=== PATIENT | male | born 1990 | race Caucasian/White ===

== ENCOUNTER 2025-05-06 18:49 | Inpatient (IN) | payer SELFPAY ==
[~2025-05-06] VITALS: Ht 170.2 cm; Wt 138.8 kg
[2025-05-06 19:00] VITALS: O2SAT 99
[2025-05-06 19:51] LABS: HEMATOCRIT. 46.9 % (42.0-52.0); HEMOGLOBIN. 15.7 g/dL (14.0-18.0); MEAN PLATELET VOLUME 9.4 fl (7.4-10.4); PLATELET 381 x1000/uL (130-400); RED BLOOD CELL COUNT 5.12 mill/uL (4.7-6.1); RED CELL DISTRIBUTION WIDTH 17.8 % (11.6-14.6)
[2025-05-06] MEDS ORDERED: ACETAMINOPHEN 500MG TABLET PO ONE (20:00)
[2025-05-06 20:05] LABS: CREATININE 0.7 mg/dL (0.6-1.3); UREA NITROGEN BLOOD 6 mg/dL (9-23)
[2025-05-06 20:07] LABS: ASPARTATE AMINOTRANSFERASE 90 IU/L (<34); BILIRUBIN DIRECT 12.0 mg/dL (<=3.0); BILIRUBIN TOTAL 17.2 mg/dL (0.1-1.0)
[2025-05-06 20:08] LABS: PROTEIN TOTAL 7.5 g/dL (6.0-8.3)
[2025-05-06 20:12] LABS: LYMPHOCYTES % MANUAL 29.0 % (20.0-50.0); MONOCYTES % MANUAL 10.0 % (2.0-8.0); NEUTROPHILS % MANUAL 61.0 % (45.0-75.0); PLATELET ESTIMATE NORMAL
[2025-05-06] MEDS ORDERED: CEFTRIAXONE 1GM/50ML 50 ML IV ONE (20:45)
[2025-05-06] MEDS: SODIUM CHLORIDE 0.9% (SEPSIS BOLUS) IV ONE (21:08)
[2025-05-06] MEDS: SODIUM CHLORIDE 0.9% 1,000 ML IV ONE (21:08)
[2025-05-06 21:29] LABS: INR 1.2
[2025-05-06] MEDS: ONDANSETRON 4MG ODT PO ONE (21:29)
[2025-05-06] MEDS: KETOROLAC 15MG/ML VIAL IM ONE (21:29)
[2025-05-06] MEDS: CEFTRIAXONE 1GM/50ML 50 ML IV NR (22:20)
[2025-05-06] MEDS: MORPHINE SULFATE 4 MG/ML INJ (FOR IV/IM USE) IV ONE (23:07)
[2025-05-06] MEDS: METRONIDAZOLE 500 MG PREMIX 100 ML IV ONE (23:17)
[2025-05-06] MEDS ORDERED: IPRATROPIUM/ALBUTEROL 0.5-3(2.5)MG/3ML NEB HHN PRN (23:30)
[2025-05-06] MEDS ORDERED: NALOXONE HCL 0.4MG/ML VIAL IV PRN (23:45)
[2025-05-07] VITALS (7 sets, daily range): BP systolic 113–130; BP diastolic 61–83; PULSE 75–89; RESP 18–20; TEMP 36.4–36.6; O2SAT 95–99
[2025-05-07 00:03] LABS: CLARITY URINE CLEAR (CLEAR); COLOR URINE DARK YELLOW (YELLOW); PH URINE 7.0 (4.5-8.0); PROTEIN URINE NEGATIVE (NEGATIVE); SPECIFIC GRAVITY URINE 1.016 (1.005-1.030)
[2025-05-07 00:04] LABS: GLUCOSE URINE 2+ (NEGATIVE); KETONES URINE NEGATIVE (NEGATIVE); LEUKOCYTE ESTERASE URINE 1+ (NEGATIVE); NITRITE URINE NEGATIVE (NEGATIVE); OCCULT BLOOD URINE NEGATIVE (NEGATIVE); UROBILINOGEN URINE 1.0 E.U./dL (0.2-1.0)
[2025-05-07 00:09] LABS: SQUAMOUS EPITHELIAL CELL URINE 2+ /lpf (RARE/1+); WBC URINE 0-2 /hpf (0-2)
[2025-05-07 00:10] LABS: BACTERIA URINE TRACE; RBC URINE NONE SEEN /hpf (0-2)
[2025-05-07] MEDS: KETOROLAC 30MG/ML VIAL IV PRN (01:16)
[2025-05-07] MEDS: MORPHINE SULFATE 4 MG/ML INJ (FOR IV/IM USE) IV PRN (02:09)
[2025-05-07] MEDS: PANTOPRAZOLE SODIUM 40 MG/VIAL IV SCH (02:09)
[2025-05-07] MEDS: PIPERACILLIN/TAZO 3.375G/50ML 50 ML IV SCH (02:10)
[2025-05-07] MEDS: DEXT 5%/0.9% NACL 1,000 ML IV SCH (02:10)
[2025-05-07 11:46] LABS: *AMPHETAMINES SCREEN URINE NEGATIVE (NEGATIVE); *BARBITURATES SCREEN URINE NEGATIVE (NEGATIVE); *BENZODIAZEPINES SCREEN URINE NEGATIVE (NEGATIVE); *COCAINE SCREEN URINE NEGATIVE (NEGATIVE)
[2025-05-07 11:47] LABS: CANNABINOID URINE SCREEN PRESUMPTIVE POSITIVE (NEGATIVE); ECSTASY MDMA SCREEN URINE NEGATIVE (NEGATIVE); METHADONE URINE SCREEN NEGATIVE (NEGATIVE); OPIATES URINE SCREEN NEGATIVE (NEGATIVE); PHENCYCLIDINE URINE SCREEN NEGATIVE (NEGATIVE)
[2025-05-08] VITALS: BP 121/71; PULSE 87; RESP 19; TEMP 36.4; O2SAT 98
[2025-05-08 04:00] VITALS: BP 116/70; PULSE 81; RESP 19; TEMP 36.6; O2SAT 99
[2025-05-08] MEDS: ONDANSETRON HCL 4MG/2ML INJ IV PRN (05:54)
[2025-05-08 06:43] LABS: BASOPHILS % 0.5 % (0.0-2.0); EOSINOPHILS % 1.2 % (0.0-5.0); HEMATOCRIT. 43.7 % (42.0-52.0); HEMOGLOBIN. 15.1 g/dL (14.0-18.0); LYMPHOCYTES % 26.7 % (20.0-50.0); MONOCYTES % 10.8 % (2.0-8.0); NEUTROPHILS % 60.8 % (40.0-76.0); RED BLOOD CELL COUNT 4.81 mill/uL (4.7-6.1); RED CELL DISTRIBUTION WIDTH 18.0 % (11.6-14.6)
[2025-05-08 06:58] LABS: UREA NITROGEN BLOOD < 5 mg/dL (9-23)
[2025-05-08 07:01] LABS: CREATININE 0.5 mg/dL (0.6-1.3)
[2025-05-08 07:02] LABS: ASPARTATE AMINOTRANSFERASE 88 IU/L (<34); MEAN PLATELET VOLUME 9.8 fl (7.4-10.4); PLATELET 375 x1000/uL (130-400)
[2025-05-08 07:03] LABS: BILIRUBIN DIRECT 12.1 mg/dL (<=3.0); BILIRUBIN TOTAL 17.5 mg/dL (0.1-1.0); PHOSPHORUS 3.2 mg/dL (2.5-4.9); PROTEIN TOTAL 6.7 g/dL (6.0-8.3)
[2025-05-08 08:00] VITALS: BP 116/76; PULSE 78; RESP 17; TEMP 37; O2SAT 96
[2025-05-08 16:30] VITALS: BP 119/75; PULSE 77; RESP 18; TEMP 36.2; O2SAT 97
[2025-05-08 20:00] VITALS: BP 120/72; PULSE 71; RESP 20; TEMP 36.5; O2SAT 96
[2025-05-09] VITALS: BP 121/76; PULSE 84; RESP 20; TEMP 36.4; O2SAT 99
[2025-05-09 04:00] VITALS: BP 114/65; PULSE 74; RESP 20; TEMP 36.4; O2SAT 99
[2025-05-09 07:25] LABS: HEMATOCRIT. 42.1 % (42.0-52.0); HEMOGLOBIN. 14.2 g/dL (14.0-18.0); MEAN PLATELET VOLUME 9.8 fl (7.4-10.4); PLATELET 381 x1000/uL (130-400); RED BLOOD CELL COUNT 4.67 mill/uL (4.7-6.1); RED CELL DISTRIBUTION WIDTH 18.0 % (11.6-14.6)
[2025-05-09 07:43] LABS: CREATININE 0.6 mg/dL (0.6-1.3); UREA NITROGEN BLOOD 5 mg/dL (9-23)
[2025-05-09 07:45] LABS: ASPARTATE AMINOTRANSFERASE 87 IU/L (<34); BILIRUBIN DIRECT 12.3 mg/dL (<=3.0); BILIRUBIN TOTAL 17.1 mg/dL (0.1-1.0); PHOSPHORUS 3.7 mg/dL (2.5-4.9); PROTEIN TOTAL 6.3 g/dL (6.0-8.3)
[2025-05-09 08:00] VITALS: BP 114/62; PULSE 77; RESP 19; TEMP 36.7; O2SAT 97
[2025-05-09 12:30] VITALS: BP 115/60; PULSE 79; RESP 19; TEMP 36.8; O2SAT 96
[2025-05-09 12:43] LABS: BAND% 9.0 % (1.0-6.0); EOSINOPHILS % MANUAL 1.0 % (0.0-5.0); LYMPHOCYTES % MANUAL 23.0 % (20.0-50.0); MONOCYTES % MANUAL 5.0 % (2.0-8.0); NEUTROPHILS % MANUAL 62.0 % (45.0-75.0); PLATELET ESTIMATE NORMAL
[2025-05-09 16:30] VITALS: BP 140/82; PULSE 79; RESP 19; TEMP 36.8; O2SAT 97
[2025-05-09 20:00] VITALS: BP 117/72; PULSE 69; RESP 18; TEMP 36.6; O2SAT 97
[2025-05-10] VITALS: BP 118/63; PULSE 71; RESP 18; TEMP 36.7; O2SAT 96
[2025-05-10 04:00] VITALS: BP 113/65; PULSE 70; RESP 18; TEMP 36.4; O2SAT 98
[2025-05-10 08:00] VITALS: BP 111/60; PULSE 70; RESP 16; TEMP 36.6; O2SAT 100
[2025-05-10] MEDS: FAMOTIDINE 20MG/2ML VIAL IV SCH (08:39)
[2025-05-10 08:45] LABS: BASOPHILS % 0.7 % (0.0-2.0); EOSINOPHILS % 1.1 % (0.0-5.0); HEMATOCRIT. 42.6 % (42.0-52.0); HEMOGLOBIN. 14.8 g/dL (14.0-18.0); LYMPHOCYTES % 23.6 % (20.0-50.0); MEAN PLATELET VOLUME 9.6 fl (7.4-10.4); MONOCYTES % 12.3 % (2.0-8.0); NEUTROPHILS % 62.3 % (40.0-76.0); PLATELET 399 x1000/uL (130-400); RED BLOOD CELL COUNT 4.67 mill/uL (4.7-6.1); RED CELL DISTRIBUTION WIDTH 18.1 % (11.6-14.6)
[2025-05-10 08:51] LABS: PROTEIN TOTAL 6.4 g/dL (6.0-8.3)
[2025-05-10 08:53] LABS: ASPARTATE AMINOTRANSFERASE 100 IU/L (<34); BILIRUBIN DIRECT 12.3 mg/dL (<=3.0); BILIRUBIN TOTAL 17.3 mg/dL (0.1-1.0)
[2025-05-10 09:35] LABS: HEPATITIS A AB IGM NEGATIVE (Negative)
[2025-05-10 09:37] LABS: HEPATITIS B CORE AB IGM NEGATIVE (Negative); HEPATITIS C AB NON REACTIVE (Neg) (Negative)
[2025-05-10 11:22] VITALS: BP 104/63; PULSE 78; RESP 18; TEMP 36.5; O2SAT 98
[2025-05-10 16:30] VITALS: BP 110/62; PULSE 72; RESP 16; TEMP 36.7; O2SAT 97
[2025-05-10 20:00] VITALS: BP 111/62; PULSE 86; RESP 19; TEMP 36.6; O2SAT 96
[2025-05-10] MEDS: DEXT 5%/0.9% NACL 1,000 ML IV SCH (23:26)
[2025-05-11] VITALS: BP 116/67; PULSE 74; RESP 19; TEMP 36.4; O2SAT 96
[2025-05-11 04:00] VITALS: BP 111/66; PULSE 74; RESP 18; TEMP 36.3; O2SAT 98
[2025-05-11 06:28] LABS: INR 3.2
[2025-05-11 06:29] LABS: BASOPHILS % 0.8 % (0.0-2.0); EOSINOPHILS % 1.0 % (0.0-5.0); HEMATOCRIT. 42.4 % (42.0-52.0); HEMOGLOBIN. 14.8 g/dL (14.0-18.0); LYMPHOCYTES % 28.6 % (20.0-50.0); MEAN PLATELET VOLUME 9.8 fl (7.4-10.4); MONOCYTES % 10.3 % (2.0-8.0); NEUTROPHILS % 59.3 % (40.0-76.0); PLATELET 407 x1000/uL (130-400); RED BLOOD CELL COUNT 4.64 mill/uL (4.7-6.1); RED CELL DISTRIBUTION WIDTH 18.3 % (11.6-14.6)
[2025-05-11 06:43] LABS: CREATININE 0.5 mg/dL (0.6-1.3); UREA NITROGEN BLOOD < 5 mg/dL (9-23)
[2025-05-11 06:44] LABS: BILIRUBIN TOTAL 17.0 mg/dL (0.1-1.0); LACTATE DEHYDROGENASE 360 IU/L (120-246)
[2025-05-11 06:45] LABS: ASPARTATE AMINOTRANSFERASE 110 IU/L (<34); BILIRUBIN DIRECT 12.1 mg/dL (<=3.0); PHOSPHORUS 3.7 mg/dL (2.5-4.9); PROTEIN TOTAL 6.3 g/dL (6.0-8.3)
[2025-05-11 08:00] VITALS: BP 108/62; PULSE 83; RESP 18; TEMP 36.4; O2SAT 98
[2025-05-11 12:00] VITALS: BP 119/67; PULSE 74; RESP 18; TEMP 36.5; O2SAT 100
[2025-05-11] MEDS: PHYTONADIONE 10 MG in DEXTROSE 5% WATER 49 ML IV NR (13:41)
[2025-05-11 16:00] VITALS: BP 119/66; PULSE 75; RESP 18; TEMP 36.3; O2SAT 99
[2025-05-11] MEDS: MEROPENEM 1G/100ML 100 ML IV SCH (18:04)
[2025-05-11 20:00] VITALS: BP 115/62; PULSE 75; RESP 20; TEMP 36.7; O2SAT 97
[2025-05-12] VITALS: BP 128/73; PULSE 74; RESP 18; TEMP 36.6; O2SAT 96
[2025-05-12 06:58] LABS: CREATININE 0.6 mg/dL (0.6-1.3); TRIGLYCERIDE 197 mg/dL (0-150); UREA NITROGEN BLOOD < 5 mg/dL (9-23)
[2025-05-12 06:59] LABS: LDL CHOLESTEROL 201 mg/dL (5-100)
[2025-05-12 07:21] LABS: BASOPHILS % 0.6 % (0.0-2.0); EOSINOPHILS % 1.7 % (0.0-5.0); HEMATOCRIT. 42.6 % (42.0-52.0); HEMOGLOBIN. 14.6 g/dL (14.0-18.0); LYMPHOCYTES % 26.6 % (20.0-50.0); MEAN PLATELET VOLUME 9.3 fl (7.4-10.4); MONOCYTES % 11.3 % (2.0-8.0); NEUTROPHILS % 59.8 % (40.0-76.0); PLATELET 395 x1000/uL (130-400); RED BLOOD CELL COUNT 4.66 mill/uL (4.7-6.1); RED CELL DISTRIBUTION WIDTH 18.7 % (11.6-14.6)
[2025-05-12 08:00] VITALS: BP 105/64; PULSE 74; RESP 20; TEMP 36.6; O2SAT 97
[2025-05-12 11:18] LABS: INR 1.3
[2025-05-12 11:39] VITALS: BP 110/60; PULSE 72; RESP 18; TEMP 36.7; O2SAT 98
[2025-05-12] MEDS ORDERED: NALOXONE HCL 0.4MG/ML VIAL IV PRN (12:00)
[2025-05-12] MEDS ORDERED: MORPHINE SULFATE 2 MG/ML INJ (NOT FOR IM USE) IV PRN (12:00)
[2025-05-12] MEDS ORDERED: ACETAMINOPHEN 325MG TABLET PO PRN (12:00)
[2025-05-12] MEDS: MORPHINE SULFATE 4 MG/ML INJ (FOR IV/IM USE) IV PRN (12:20)
[2025-05-12] MEDS: METOCLOPRAMIDE HCL 10MG/2ML VIAL IV SCH (15:00)
[2025-05-12 16:00] VITALS: BP 106/63; PULSE 73; RESP 18; TEMP 36.6; O2SAT 97
[2025-05-12 19:06] LABS: ACTIN (SMOOTH MUSCLE) ANTIBODY 6 Units (0-19); MITOCHONDRIAL M2 AB <20.0 Units (0.0-20.0)
[2025-05-12 20:00] VITALS: BP 116/62; PULSE 81; RESP 18; TEMP 36.7; O2SAT 96
[2025-05-13] VITALS: BP 115/64; PULSE 80; RESP 18; TEMP 36.7; O2SAT 95
[2025-05-13 04:00] VITALS: BP 117/68; PULSE 68; RESP 22; TEMP 36.1; O2SAT 97
[2025-05-13 20:00] VITALS: BP 109/62; PULSE 68; RESP 18; TEMP 36.7; O2SAT 98
[2025-05-14] VITALS: BP 135/75; PULSE 70; RESP 18; TEMP 36.6; O2SAT 95
[2025-05-14 04:00] VITALS: BP_SYST 114; BP_SYST 125; BP_DIAS 72; BP_DIAS 78; PULSE 72; PULSE 98; RESP 18; TEMP 36.3; TEMP 36.7; O2SAT 96; O2SAT 98
[2025-05-14 08:00] VITALS: BP 105/55; PULSE 70; RESP 20; TEMP 36.7; O2SAT 100
[2025-05-14 12:00] VITALS: BP 121/77; PULSE 96; RESP 20; TEMP 36.6; O2SAT 99
[2025-05-14 13:33] LABS: BASOPHILS % 0.5 % (0.0-2.0); EOSINOPHILS % 0.9 % (0.0-5.0); HEMATOCRIT. 45.3 % (42.0-52.0); HEMOGLOBIN. 15.2 g/dL (14.0-18.0); LYMPHOCYTES % 25.9 % (20.0-50.0); MEAN PLATELET VOLUME 9.2 fl (7.4-10.4); MONOCYTES % 9.6 % (2.0-8.0); NEUTROPHILS % 63.1 % (40.0-76.0); PLATELET 386 x1000/uL (130-400); RED BLOOD CELL COUNT 4.95 mill/uL (4.7-6.1); RED CELL DISTRIBUTION WIDTH 19.4 % (11.6-14.6)
[2025-05-14 13:50] LABS: INR 1.5
[2025-05-14 13:51] LABS: CREATININE 0.5 mg/dL (0.6-1.3)
[2025-05-14 13:52] LABS: UREA NITROGEN BLOOD < 5 mg/dL (9-23)
[2025-05-14 13:54] LABS: ASPARTATE AMINOTRANSFERASE 102 IU/L (<34); BILIRUBIN DIRECT 14.5 mg/dL (<=3.0); BILIRUBIN TOTAL 19.2 mg/dL (0.1-1.0); PROTEIN TOTAL 6.0 g/dL (6.0-8.3)
[2025-05-14] MEDS ORDERED: ACETAMINOPHEN 500MG TABLET PO SCH (15:00)
[2025-05-14 16:00] VITALS: BP 112/62; PULSE 80; RESP 20; TEMP 36.4; O2SAT 100
[2025-05-14] MEDS: MESALAMINE 400 MG CAPSULE.DR PO SCH (16:40)
[2025-05-14 20:00] VITALS: BP 131/83; PULSE 79; RESP 17; TEMP 36.4; O2SAT 94
[2025-05-15] VITALS: BP 128/79; PULSE 77; RESP 18; TEMP 36.5; O2SAT 96
[2025-05-15] MEDS: GADOTERATE MEGLUMINE 5 MMOL/10 ML VIAL IV ONE (00:24)
[2025-05-15 04:00] VITALS: BP 133/75; PULSE 76; RESP 18; TEMP 36.6; O2SAT 97
[2025-05-15] MEDS: PANTOPRAZOLE 40MG DR TABLET PO SCH (06:40)
[2025-05-15 08:00] VITALS: BP 107/58; PULSE 87; RESP 18; TEMP 37.1; O2SAT 95
[2025-05-15 08:54] LABS: BASOPHILS % 0.3 % (0.0-2.0); EOSINOPHILS % 0.7 % (0.0-5.0); HEMATOCRIT. 46.5 % (42.0-52.0); HEMOGLOBIN. 15.9 g/dL (14.0-18.0); LYMPHOCYTES % 15.1 % (20.0-50.0); MEAN PLATELET VOLUME 9.4 fl (7.4-10.4); MONOCYTES % 10.9 % (2.0-8.0); NEUTROPHILS % 73.0 % (40.0-76.0); PLATELET 386 x1000/uL (130-400); RED BLOOD CELL COUNT 5.07 mill/uL (4.7-6.1); RED CELL DISTRIBUTION WIDTH 19.6 % (11.6-14.6)
[2025-05-15 09:20] LABS: CREATININE 0.6 mg/dL (0.6-1.3)
[2025-05-15 09:21] LABS: UREA NITROGEN BLOOD < 5 mg/dL (9-23)
[2025-05-15 09:22] LABS: ASPARTATE AMINOTRANSFERASE 100 IU/L (<34)
[2025-05-15 09:23] LABS: BILIRUBIN DIRECT 13.8 mg/dL (<=3.0); BILIRUBIN TOTAL 19.5 mg/dL (0.1-1.0); PROTEIN TOTAL 6.3 g/dL (6.0-8.3)
[2025-05-15 09:36] LABS: ERYTHROCYTE SEDIMENTATION RATE 1 mm/hr (0-15)
[2025-05-15 10:11] LABS: ANA IFA Negative (.)
[2025-05-15 12:00] VITALS: BP 105/54; PULSE 89; RESP 20; O2SAT 94
[2025-05-15 16:00] VITALS: BP 105/66; PULSE 96; RESP 18; TEMP 36.8; TEMP 36.9; O2SAT 95
[2025-05-15 22:00] VITALS: BP 110/56; PULSE 96; RESP 18; TEMP 36.9; O2SAT 96
[2025-05-16] VITALS: BP 106/50; PULSE 90; RESP 17; TEMP 37; O2SAT 98
[2025-05-16 04:00] VITALS: BP 117/62; PULSE 92; RESP 17; TEMP 36.6; O2SAT 96
[2025-05-16] MEDS: KETOROLAC 30MG/ML VIAL IV PRN (04:12)
[2025-05-16 07:27] LABS: INR 1.6
[2025-05-16 07:36] LABS: BASOPHILS % 0.5 % (0.0-2.0); EOSINOPHILS % 0.8 % (0.0-5.0); HEMATOCRIT. 44.9 % (42.0-52.0); HEMOGLOBIN. 15.2 g/dL (14.0-18.0); LYMPHOCYTES % 21.3 % (20.0-50.0); MONOCYTES % 10.1 % (2.0-8.0); NEUTROPHILS % 67.3 % (40.0-76.0); RED BLOOD CELL COUNT 4.88 mill/uL (4.7-6.1); RED CELL DISTRIBUTION WIDTH 19.5 % (11.6-14.6)
[2025-05-16 07:39] LABS: CREATININE 0.5 mg/dL (0.6-1.3); UREA NITROGEN BLOOD < 5 mg/dL (9-23)
[2025-05-16 07:41] LABS: ASPARTATE AMINOTRANSFERASE 101 IU/L (<34); BILIRUBIN TOTAL 20.5 mg/dL (0.1-1.0); PROTEIN TOTAL 6.0 g/dL (6.0-8.3)
[2025-05-16 08:00] VITALS: BP 118/65; PULSE 93; RESP 19; TEMP 36.6; O2SAT 96
[2025-05-16 09:02] LABS: PLATELET 385 x1000/uL (130-400)
[2025-05-16 12:00] VITALS: BP 112/62; PULSE 87; RESP 18; TEMP 36.5; O2SAT 98
[2025-05-16 16:00] VITALS: BP 97/62; PULSE 97; RESP 18; TEMP 36.6; O2SAT 98
[2025-05-16 20:00] VITALS: BP 138/91; PULSE 103; RESP 18; TEMP 36.4; O2SAT 98
[2025-05-17] VITALS: BP 115/62; PULSE 94; RESP 16; TEMP 36.8; O2SAT 98
[2025-05-17 04:00] VITALS: BP 139/85; PULSE 95; RESP 18; TEMP 36.2; O2SAT 98
[2025-05-17 08:00] VITALS: BP 122/71; PULSE 85; RESP 19; TEMP 36.3; O2SAT 98
[2025-05-17 11:09] LABS: BASOPHILS % 0.3 % (0.0-2.0); EOSINOPHILS % 0.6 % (0.0-5.0); HEMATOCRIT. 44.8 % (42.0-52.0); HEMOGLOBIN. 15.1 g/dL (14.0-18.0); LYMPHOCYTES % 15.4 % (20.0-50.0); MEAN PLATELET VOLUME 8.9 fl (7.4-10.4); MONOCYTES % 9.1 % (2.0-8.0); NEUTROPHILS % 74.6 % (40.0-76.0); PLATELET 364 x1000/uL (130-400); RED BLOOD CELL COUNT 4.81 mill/uL (4.7-6.1); RED CELL DISTRIBUTION WIDTH 19.5 % (11.6-14.6)
[2025-05-17 11:15] LABS: INR 1.8
[2025-05-17 11:21] LABS: CREATININE 0.5 mg/dL (0.6-1.3); UREA NITROGEN BLOOD < 5 mg/dL (9-23)
[2025-05-17 11:23] LABS: ASPARTATE AMINOTRANSFERASE 98 IU/L (<34)
[2025-05-17 11:24] LABS: BILIRUBIN TOTAL 20.6 mg/dL (0.1-1.0); PROTEIN TOTAL 5.8 g/dL (6.0-8.3)
[2025-05-17] MEDS ORDERED: NALOXONE HCL 0.4MG/ML VIAL IV PRN (15:00)
[2025-05-17 16:30] VITALS: BP 131/79; PULSE 92; RESP 18; TEMP 36.7; O2SAT 98
[2025-05-17] MEDS: MORPHINE SULFATE 4 MG/ML INJ (FOR IV/IM USE) IV PRN (16:54)
[2025-05-17 17:11] LABS: ANTI-MYELOPEROXIDASE AB < 0.2 units (0.0-0.9); ANTI-PROTEINASE 3 ABS < 0.2 units (0.0-0.9)
[2025-05-17 20:00] VITALS: BP 129/92; PULSE 99; RESP 20; TEMP 36.1; O2SAT 96
[2025-05-18] VITALS: BP 134/76; PULSE 102; RESP 22; TEMP 36.4; O2SAT 97
[2025-05-18 03:40] VITALS: BP 138/89; PULSE 107; RESP 21; TEMP 36.2; O2SAT 95
[2025-05-18 07:01] LABS: INR 1.9
[2025-05-18 07:06] LABS: BASOPHILS % 0.4 % (0.0-2.0); EOSINOPHILS % 0.6 % (0.0-5.0); HEMATOCRIT. 45.2 % (42.0-52.0); HEMOGLOBIN. 15.4 g/dL (14.0-18.0); LYMPHOCYTES % 15.4 % (20.0-50.0); MONOCYTES % 9.4 % (2.0-8.0); NEUTROPHILS % 74.2 % (40.0-76.0); RED BLOOD CELL COUNT 4.91 mill/uL (4.7-6.1); RED CELL DISTRIBUTION WIDTH 20.1 % (11.6-14.6)
[2025-05-18 07:16] LABS: CREATININE 0.5 mg/dL (0.6-1.3)
[2025-05-18 07:17] LABS: UREA NITROGEN BLOOD < 5 mg/dL (9-23)
[2025-05-18 07:18] LABS: ASPARTATE AMINOTRANSFERASE 99 IU/L (<34)
[2025-05-18 07:19] LABS: BILIRUBIN TOTAL 20.1 mg/dL (0.1-1.0); PROTEIN TOTAL 5.9 g/dL (6.0-8.3)
[2025-05-18 08:00] VITALS: BP 119/72; PULSE 101; RESP 18; TEMP 37.3; O2SAT 96
[2025-05-18 12:00] VITALS: BP 139/87; PULSE 104; RESP 18; TEMP 36.2; O2SAT 98
[2025-05-18] MEDS: PHYTONADIONE 10MG/ML INJ SUBCUT SCH (13:48)
[2025-05-18 16:00] VITALS: BP 126/82; PULSE 91; RESP 18; TEMP 36.6; O2SAT 97
[2025-05-18 17:01] LABS: MEAN PLATELET VOLUME 9.3 fl (7.4-10.4); PLATELET 359 x1000/uL (130-400)
[2025-05-18 19:11] LABS: ATYPICAL P-ANCA <1:20 titer (Neg:<1:20); CYTOPLASMIC C-ANCA <1:20 titer (Neg:<1:20); PERINUCLEAR P-ANCA <1:20 titer (Neg:<1:20)
[2025-05-18 20:00] VITALS: BP 125/77; PULSE 95; RESP 20; TEMP 36.2; O2SAT 95
[2025-05-19] VITALS: BP 125/82; PULSE 92; RESP 20; TEMP 36.4; O2SAT 95
[2025-05-19 04:00] VITALS: BP 124/80; PULSE 95; RESP 20; TEMP 36.2; O2SAT 95
[2025-05-19 08:00] VITALS: BP 124/81; PULSE 99; RESP 16; TEMP 36.6; O2SAT 99
[2025-05-19 08:49] LABS: UREA NITROGEN BLOOD 5 mg/dL (9-23)
[2025-05-19 08:52] LABS: BASOPHILS % 0.5 % (0.0-2.0); EOSINOPHILS % 0.6 % (0.0-5.0); HEMATOCRIT. 46.1 % (42.0-52.0); HEMOGLOBIN. 15.4 g/dL (14.0-18.0); LYMPHOCYTES % 17.4 % (20.0-50.0); MEAN PLATELET VOLUME 9.2 fl (7.4-10.4); MONOCYTES % 10.1 % (2.0-8.0); NEUTROPHILS % 71.4 % (40.0-76.0); PLATELET 350 x1000/uL (130-400); RED BLOOD CELL COUNT 4.96 mill/uL (4.7-6.1); RED CELL DISTRIBUTION WIDTH 19.8 % (11.6-14.6)
[2025-05-19 09:05] LABS: ASPARTATE AMINOTRANSFERASE 101 IU/L (<34)
[2025-05-19 09:06] LABS: BILIRUBIN DIRECT 14.9 mg/dL (<=3.0); BILIRUBIN TOTAL 21.0 mg/dL (0.1-1.0); PROTEIN TOTAL 6.0 g/dL (6.0-8.3)
[2025-05-19 09:11] LABS: CREATININE 0.7 mg/dL (0.6-1.3)
[2025-05-19] MEDS: MORPHINE SULFATE 4 MG/ML INJ (FOR IV/IM USE) IV SCH (10:49)
[2025-05-19 12:00] VITALS: BP 118/77; PULSE 103; RESP 20; TEMP 36.5; O2SAT 100
[2025-05-19] MEDS: MORPHINE SULFATE 4 MG/ML INJ (FOR IV/IM USE) IV PRN (12:21)
[2025-05-19 16:00] VITALS: BP 133/86; PULSE 102; RESP 20; TEMP 36; O2SAT 96
[2025-05-19 20:00] VITALS: BP 121/72; PULSE 90; RESP 19; TEMP 36.1; O2SAT 99
[2025-05-20] VITALS (9 sets, daily range): BP systolic 101–122; BP diastolic 59–71; PULSE 100–110; RESP 16–19; TEMP 36.6–36.78072; O2SAT 96–97
[2025-05-20 06:55] LABS: INR 1.8
[2025-05-20 06:58] LABS: BASOPHILS % 0.3 % (0.0-2.0); EOSINOPHILS % 0.5 % (0.0-5.0); HEMATOCRIT. 45.3 % (42.0-52.0); HEMOGLOBIN. 15.2 g/dL (14.0-18.0); LYMPHOCYTES % 15.1 % (20.0-50.0); MEAN PLATELET VOLUME 9.0 fl (7.4-10.4); MONOCYTES % 9.8 % (2.0-8.0); NEUTROPHILS % 74.3 % (40.0-76.0); PLATELET 338 x1000/uL (130-400); RED BLOOD CELL COUNT 4.84 mill/uL (4.7-6.1); RED CELL DISTRIBUTION WIDTH 20.2 % (11.6-14.6)
[2025-05-20 07:39] LABS: CREATININE 0.8 mg/dL (0.6-1.3); UREA NITROGEN BLOOD 6 mg/dL (9-23)
[2025-05-20 07:41] LABS: ASPARTATE AMINOTRANSFERASE 105 IU/L (<34)
[2025-05-20 07:42] LABS: BILIRUBIN TOTAL 20.8 mg/dL (0.1-1.0); PROTEIN TOTAL 6.0 g/dL (6.0-8.3)
[2025-05-21] VITALS (29 sets, daily range): BP systolic 101–133; BP diastolic 60–83; PULSE 98–111; RESP 17–26; TEMP 36.3–37.61412; O2SAT 94–97
[2025-05-21] MEDS: BLOOD SUGAR DIAGNOSTIC STRIP TEST SCH
[2025-05-21 07:15] LABS: INR 1.7
[2025-05-21 07:26] LABS: BASOPHILS % 0.4 % (0.0-2.0); EOSINOPHILS % 0.6 % (0.0-5.0); HEMATOCRIT. 42.5 % (42.0-52.0); HEMOGLOBIN. 14.6 g/dL (14.0-18.0); LYMPHOCYTES % 16.9 % (20.0-50.0); MONOCYTES % 11.3 % (2.0-8.0); NEUTROPHILS % 70.8 % (40.0-76.0); RED BLOOD CELL COUNT 4.58 mill/uL (4.7-6.1); RED CELL DISTRIBUTION WIDTH 20.7 % (11.6-14.6)
[2025-05-21 07:28] LABS: CREATININE 0.7 mg/dL (0.6-1.3)
[2025-05-21 07:29] LABS: UREA NITROGEN BLOOD 8 mg/dL (9-23)
[2025-05-21 07:31] LABS: ASPARTATE AMINOTRANSFERASE 100 IU/L (<34); BILIRUBIN TOTAL 21.5 mg/dL (0.1-1.0); PROTEIN TOTAL 5.6 g/dL (6.0-8.3)
[2025-05-21] MEDS ORDERED: LIDOCAINE HCL 1% 10 MG/ML 10ML VIAL ONE (08:52)
[2025-05-21] MEDS ORDERED: IOHEXOL-350 100 ML BOTTLE ONE (08:52)
[2025-05-21] MEDS ORDERED: FENTANYL CITRATE/PF 50MCG/ML 2ML VIAL ONE (09:11)
[2025-05-21] MEDS: FENTANYL CITRATE/PF 50MCG/ML 2ML VIAL IV SCH (09:15)
[2025-05-21] MEDS ORDERED: IOHEXOL-300 100 ML BOTTLE ONE (09:29)
[2025-05-21] MEDS: PHYTONADIONE 10MG/ML INJ SUBCUT NR (12:22)
[2025-05-21] MEDS: LACTULOSE 20G/30ML UDC PO SCH (14:25)
[2025-05-21] MEDS: ACETAMINOPHEN 325MG TABLET PO PRN (17:40)
[2025-05-21] MEDS: RIFAXIMIN 550 MG TABLET PO SCH (21:22)
[2025-05-21 21:36] LABS: INR 1.6
[2025-05-22 00:30] VITALS: BP 111/59; PULSE 107; RESP 20; TEMP 36.6
[2025-05-22 04:35] VITALS: BP 123/73; PULSE 105; RESP 20; TEMP 36.7; O2SAT 97
[2025-05-22 08:00] VITALS: BP 116/67; PULSE 135; RESP 22; TEMP 37.1; O2SAT 98
[2025-05-22 08:55] LABS: BASOPHILS % 0.2 % (0.0-2.0); EOSINOPHILS % 0.4 % (0.0-5.0); HEMATOCRIT. 43.8 % (42.0-52.0); HEMOGLOBIN. 14.7 g/dL (14.0-18.0); LYMPHOCYTES % 14.4 % (20.0-50.0); MEAN PLATELET VOLUME 9.1 fl (7.4-10.4); MONOCYTES % 12.0 % (2.0-8.0); NEUTROPHILS % 73.0 % (40.0-76.0); PLATELET 326 x1000/uL (130-400); RED BLOOD CELL COUNT 4.71 mill/uL (4.7-6.1); RED CELL DISTRIBUTION WIDTH 21.0 % (11.6-14.6)
[2025-05-22 09:02] LABS: INR 1.7
[2025-05-22 09:06] LABS: CREATININE 0.9 mg/dL (0.6-1.3)
[2025-05-22 09:07] LABS: UREA NITROGEN BLOOD 11 mg/dL (9-23)
[2025-05-22 09:08] LABS: ASPARTATE AMINOTRANSFERASE 124 IU/L (<34); BILIRUBIN TOTAL 24.4 mg/dL (0.1-1.0)
[2025-05-22 09:09] LABS: PROTEIN TOTAL 6.7 g/dL (6.0-8.3)
[2025-05-22 12:00] VITALS: BP 112/77; PULSE 110; RESP 26; TEMP 36.6; O2SAT 95
[2025-05-22] MEDS: PHYTONADIONE 10MG/ML INJ SUBCUT NR (14:20)
[2025-05-22] MEDS: MORPHINE SULFATE 4 MG/ML INJ (FOR IV/IM USE) IV PRN (15:12)
[2025-05-22 16:00] VITALS: BP 108/70; PULSE 109; RESP 22; TEMP 36.7; O2SAT 93
[2025-05-22 20:00] VITALS: BP 104/66; PULSE 86; RESP 18; TEMP 36.9; O2SAT 94
[2025-05-23] VITALS (17 sets, daily range): BP systolic 103–130; BP diastolic 64–82; PULSE 92–105; RESP 18–22; TEMP 35.89176–37.1; O2SAT 94–96
[2025-05-23 08:07] LABS: INR 1.7; PLATELET 302 x1000/uL (130-400); RED BLOOD CELL COUNT 4.64 mill/uL (4.7-6.1); RED CELL DISTRIBUTION WIDTH 21.0 % (11.6-14.6)
[2025-05-23 08:10] LABS: CREATININE 0.9 mg/dL (0.6-1.3); UREA NITROGEN BLOOD 11 mg/dL (9-23)
[2025-05-23 08:12] LABS: ASPARTATE AMINOTRANSFERASE 121 IU/L (<34); BILIRUBIN DIRECT > 15.0 mg/dL (<=3.0); BILIRUBIN TOTAL 23.6 mg/dL (0.1-1.0); PROTEIN TOTAL 6.1 g/dL (6.0-8.3)
[2025-05-23] MEDS ORDERED: HYDROMORPHONE HCL/PF 2MG/ML INJ IM PRN (09:30)
[2025-05-23] MEDS: HYDROMORPHONE HCL/PF 1MG/ML INJ IV PRN ×2 (10:58→15:54)
[2025-05-23] MEDS: HYDROCODONE/ACETAMINOPHEN 5/325MG TABLET PO NR (22:11)
[2025-05-24] VITALS (15 sets, daily range): BP systolic 105–155; BP diastolic 62–86; PULSE 84–96; RESP 14–20; TEMP 35.8362–37.61412; O2SAT 91–94
[2025-05-24 07:18] LABS: RED BLOOD CELL COUNT 4.50 mill/uL (4.7-6.1); RED CELL DISTRIBUTION WIDTH 21.5 % (11.6-14.6)
[2025-05-24 07:26] LABS: CREATININE 0.9 mg/dL (0.6-1.3); UREA NITROGEN BLOOD 11 mg/dL (9-23)
[2025-05-24 07:28] LABS: ASPARTATE AMINOTRANSFERASE 114 IU/L (<34); BILIRUBIN DIRECT > 15.0 mg/dL (<=3.0); BILIRUBIN TOTAL 23.7 mg/dL (0.1-1.0); PROTEIN TOTAL 6.1 g/dL (6.0-8.3)
[2025-05-24 07:50] LABS: INR 1.6
[2025-05-24] MEDS: ACETAMINOPHEN 325MG TABLET PO PRN (14:23)
[2025-05-25] VITALS (9 sets, daily range): BP systolic 99–152; BP diastolic 60–86; PULSE 82–111; RESP 16–20; TEMP 36–37; O2SAT 92–98
[2025-05-25 11:32] LABS: PLATELET 311 x1000/uL (130-400); RED BLOOD CELL COUNT 4.49 mill/uL (4.7-6.1); RED CELL DISTRIBUTION WIDTH 21.6 % (11.6-14.6)
[2025-05-25 11:43] LABS: CREATININE 1.1 mg/dL (0.6-1.3); UREA NITROGEN BLOOD 12 mg/dL (9-23)
[2025-05-25 11:45] LABS: ASPARTATE AMINOTRANSFERASE 115 IU/L (<34); BILIRUBIN DIRECT > 15.0 mg/dL (<=3.0); BILIRUBIN TOTAL 24.5 mg/dL (0.1-1.0); PROTEIN TOTAL 6.3 g/dL (6.0-8.3)
[2025-05-25] MEDS: METOPROLOL TARTRATE 25MG TABLET PO SCH (12:39)
[2025-05-25 13:08] LABS: INR 1.7
[2025-05-25] MEDS: PHYTONADIONE 10MG/ML INJ SUBCUT NR (13:42)
[2025-05-25 18:41] LABS: INR 1.8
[2025-05-26] VITALS (23 sets, daily range): BP systolic 96–124; BP diastolic 51–78; PULSE 58–111; RESP 16–21; TEMP 35.9–36.9; O2SAT 90–98
[2025-05-26 08:31] LABS: CREATININE 1.3 mg/dL (0.6-1.3)
[2025-05-26 08:32] LABS: UREA NITROGEN BLOOD 13 mg/dL (9-23)
[2025-05-26 08:33] LABS: ASPARTATE AMINOTRANSFERASE 120 IU/L (<34)
[2025-05-26 08:34] LABS: BILIRUBIN TOTAL 25.9 mg/dL (0.1-1.0); PROTEIN TOTAL 6.2 g/dL (6.0-8.3)
[2025-05-26 08:44] LABS: BASOPHILS % 0.5 % (0.0-2.0); EOSINOPHILS % 1.1 % (0.0-5.0); HEMATOCRIT. 44.5 % (42.0-52.0); HEMOGLOBIN. 15.2 g/dL (14.0-18.0); LYMPHOCYTES % 11.7 % (20.0-50.0); MEAN PLATELET VOLUME 8.8 fl (7.4-10.4); MONOCYTES % 11.6 % (2.0-8.0); NEUTROPHILS % 75.1 % (40.0-76.0); PLATELET 304 x1000/uL (130-400); RED BLOOD CELL COUNT 4.75 mill/uL (4.7-6.1); RED CELL DISTRIBUTION WIDTH 22.4 % (11.6-14.6)
[2025-05-26 08:48] LABS: ADD RBC MORPHOLOGY NO
[2025-05-26 08:51] LABS: INR 1.9
[2025-05-26] MEDS: PHYTONADIONE 10MG/ML INJ SUBCUT ONE (10:56)
[2025-05-26 15:08] LABS: INR 1.9
[2025-05-26 21:13] LABS: INR 1.7
[2025-05-27] VITALS (9 sets, daily range): BP systolic 99–124; BP diastolic 49–65; PULSE 80–102; RESP 16–24; TEMP 36.4–36.8; O2SAT 91–99
[2025-05-27 01:00] LABS: INR 1.7
[2025-05-27 07:04] LABS: INR 1.6
[2025-05-27 07:21] LABS: UREA NITROGEN BLOOD 15 mg/dL (9-23)
[2025-05-27 07:23] LABS: ASPARTATE AMINOTRANSFERASE 111 IU/L (<34); BILIRUBIN TOTAL 25.7 mg/dL (0.1-1.0); PROTEIN TOTAL 6.3 g/dL (6.0-8.3)
[2025-05-27 07:36] LABS: BASOPHILS % 0.8 % (0.0-2.0); EOSINOPHILS % 1.8 % (0.0-5.0); HEMATOCRIT. 40.8 % (42.0-52.0); HEMOGLOBIN. 13.6 g/dL (14.0-18.0); LYMPHOCYTES % 15.2 % (20.0-50.0); MONOCYTES % 13.0 % (2.0-8.0); NEUTROPHILS % 69.2 % (40.0-76.0); RED BLOOD CELL COUNT 4.27 mill/uL (4.7-6.1); RED CELL DISTRIBUTION WIDTH 23.7 % (11.6-14.6)
[2025-05-27] MEDS: RIFAXIMIN 550 MG TABLET PO SCH (08:37)
[2025-05-27 09:06] LABS: CREATININE 1.9 mg/dL (0.6-1.3)
[2025-05-27 09:26] LABS: PLATELET 293 x1000/uL (130-400)
[2025-05-27] MEDS ORDERED: SODIUM CHLORIDE 0.9% 500 ML IV ONE (11:30)
[2025-05-27] MEDS: HYDROMORPHONE HCL/PF 1MG/ML INJ IV SCH (12:10)
[2025-05-27] MEDS ORDERED: LIDOCAINE HCL 1% 10 MG/ML 10ML VIAL ONE (12:28)
[2025-05-27] MEDS: PHYTONADIONE 10MG/ML INJ SUBCUT SCH (12:39)
[2025-05-28] VITALS: BP 116/58; PULSE 92; RESP 18; TEMP 36.7; O2SAT 98
[2025-05-28 04:00] VITALS: BP 98/49; PULSE 83; RESP 20; TEMP 36.3; O2SAT 86
[2025-05-28 08:00] VITALS: BP 103/59; PULSE 85; RESP 20; TEMP 36.5; O2SAT 100
[2025-05-28] MEDS: PREDNISONE 10MG TABLET PO SCH (10:52)
[2025-05-28 12:00] VITALS: BP 129/49; PULSE 91; RESP 20; TEMP 36.4; O2SAT 100
[2025-05-28] MEDS ORDERED: FUROSEMIDE 100MG/10ML VIAL IVP SCH (12:00)
[2025-05-28 17:15] VITALS: BP 127/70; PULSE 95; RESP 20
[2025-05-28] MEDS: HYDROMORPHONE HCL/PF 1MG/ML INJ IV SCH (17:15)
== END 2025-05-28 18:32 | disposition left against medical advice (07) | DRG 720 ==
LOC: ER 18:49 → 8WST 22:44 → EDBEDREQ 22:51 → EDBEDREQTM 22:51 → ENRESERV 23:58 → 8WST 05-23 22:40
PROVIDERS: ADMIT Student in an Organized Health Care Education/Training Program; ATTEND Student in an Organized Health Care Education/Training Program
PROC: 30233K1 Transfusion of Nonautologous Frozen Plasma into Peripheral Vein, Percutaneous Approach (ICD-10-PCS; principal; 2025-05-20)
PROC: 0FB13ZX Excision of Right Lobe Liver, Percutaneous Approach, Diagnostic (ICD-10-PCS; 2025-05-27)
DX: A41.9 Sepsis, unspecified organism (principal); K76.7 Hepatorenal syndrome; N17.0 Acute kidney failure with tubular necrosis; K80.62 Calculus of gallbladder and bile duct with acute cholecystitis without obstruction; E72.20 Disorder of urea cycle metabolism, unspecified; D68.9 Coagulation defect, unspecified; E87.20 Acidosis, unspecified; E88.09 Other disorders of plasma-protein metabolism, not elsewhere classified; K52.9 Noninfective gastroenteritis and colitis, unspecified; K43.9 Ventral hernia without obstruction or gangrene; E66.01 Morbid (severe) obesity due to excess calories; I10 Essential (primary) hypertension; M21.372 Foot drop, left foot; M21.371 Foot drop, right foot; N17.9 Acute kidney failure, unspecified; R18.8 Other ascites; Z90.81 Acquired absence of spleen; Z68.42 Body mass index [BMI] 45.0-49.9, adult
CPT/HCPCS: 36415; 71045; 74176; 74178; 74183; 75820; 76700; 76705; 76942; 80048; 80053; 80061; 80076; 80305; 81003; 82105; 82140; 82150; 82164; 82247; 82248; 82390; 82550; 82728; 82962; 82977; 83036; 83516; 83520; 83540; 83550; 83605; 83615; 83735; 84100; 84145; 85014; 85018; 85025; 85027; 85044; 85651; 86256; 86301; 86705; 86709; 86850; 86900; 86927; 87340; 88307; 93005; 93306; 93976; 99152; 99153; 99291; A4606; A9577; C1730; C1766; C1769; J0696; J1171; J1308; J1644; J1885; J2003; J2185; J2270; J2405; J2470; J2543; J2765; J3010; J3430; J3490; J7030; J7042; J7060; J7512; P9017; Q0162; Q9967; G0500